=== PATIENT | female | born 2005 | race Caucasian/White ===

== ENCOUNTER 2025-07-11 22:15 | Emergency (ER) | payer OTHER, SELFPAY ==
--- NOTE | ~2025-07-11 | CT_ITS ---
CT of the Abdomen and Pelvis: Indication: Abdominal pain Technique: 2.5 mm axial scans were obtained through the abdomen and pelvis following intravenous administration of 100 cc of Omnipaque 350. Dose reduction technique was used on this scan by utilizing automated exposure control and iterative reconstruction technique. The dose-length product (DLP) was 224.43 mGy-cm. Findings: Scans through the lung bases are unremarkable. The liver, spleen, pancreas, gallbladder, adrenals and kidneys are within normal limits. No evidence of aortic aneurysm. No lymphadenopathy. No bowel obstruction or bowel wall thickening. There is no evidence to suggest acute appendicitis. Images through the pelvis were performed. Urinary bladder unremarkable. No pelvic mass seen. No ascites. No ascites. Impression: No significant abnormalities seen. Reviewed, dictated and finalized at [facility]. Impression: No significant abnormalities seen.
[2025-07-11 22:19] VITALS: BP 154/88; PULSE 115; RESP 16; TEMP 36.7; O2SAT 100
[2025-07-11 22:46] LABS: Hematocrit 36.6 % (37.0-47.0); Hemoglobin 12.7 g/dL (12.0-15.0); Immature Granulocyte Percent A 0.2 % (0-0.5); Lymphocytes Absolute Auto 3.94 K/mm3 (0.9-3.2); Mean Corpuscular HGB Conc 34.7 g/dl (32-36); Mean Corpuscular Hemoglobin 32.1 pg (26-34); Mean Corpuscular Volume 92.4 fl (80-100); Nucleated Red Blood Cells Absolute Auto 0.000 K/mm3 (0.0-0.012); Nucleated Red Blood Cells Perc 0.0 % (0.0-0.2); Platelet Count Result 241 k/mm3 (150-375); Red Blood Count 3.96 M/mm3 (4.2-5.4); White Blood Count 9.0 K/mm3 (4.5-10.0)
[2025-07-11 22:58] LABS: Alanine Aminotransferase 14 U/L (6-35); Albumin Level 4.5 g/dL (3.5-5.1); Alkaline Phosphatase 41 U/L (38-126); Anion Gap 9 mmol/L (4-12); Aspartate Amino Transferase 29 U/L (14-36); Bilirubin,Total 0.2 mg/dL (0.2-1.3); Blood Urea Nitrogen 16 mg/dL (7-17); Calcium 10.4 mg/dL (8.4-10.2); Carbon Dioxide 23 mmol/L (22-30); Chloride 105 mmol/L (98-107); Estimated CRCL calculation 74 ml/min; Estimated Glomerular Filt Rate > 60; Glucose 123 mg/dL (65-110); Lipase 54 U/L (23-300); Potassium 3.3 mmol/L (3.4-5.0); Sodium 137 mmol/L (137-145); Total Protein 7.7 g/dL (6.3-8.2)
[2025-07-11 23:24] LABS: Add Urine Microscopic? NO; Appearance Urine Clear (Clear); Glucose Urine UA Negative (Negative); Leukocyte Esterase Ur Negative LEU/UL (Negative); Nitrate Urine Negative (Negative); Specific Grav Ur 1.005 (1.001-1.035)
[2025-07-12 01:16] VITALS: BP 117/74; O2SAT 99
[2025-07-12 01:17] VITALS: O2SAT 99
--- OUTSIDE RECORDS SUMMARY | 2025-07-12 01:28 | XMS_ITS | Encounter Summary ---
Author Organization [facility] Address [address] [place] [address] Care Team Providers Care Lead Military Analyst Name Role Phone Unavailable Primary Care Provider Unavailabl e Source Comments In the event that this is information that is protected by [facility] Confidentiality of Substance User Disorder Patient Records, 42 CFR Part 2 prohibits the unauthorized disclosure of these records.[facility] Encounter Details Date Type Department Care Team (Latest Contact Info) Description 05/31/2025 Lab Requisition [place] Pathology [address] [place] [address] Rhoda Lama ANP, NA [address] [facility] [address] [place] [id number] Encounter for gynecological examination (general) (routine) without abnormal findings; Encounter for screening for infections with a predominantly sexual mode of transmission; Encounter for screening for other infectious and parasitic diseases Social History Tobacco Use Types Packs/Day Years Used Date Smoking Tobacco: Never Assessed Comments Unknown Sex and Gender Information Value Date Recorded Sex Assigned at Not on file Legal Sex Female 5:40 PM CDT Gender Identity Not on file Sexual Orientation Not on file documented as of this encounter Plan of Treatment Not on file documented as of this encounter Procedures Procedure Name Priority Date/Time Associated Diagnosis Comments IMAGE GUIDED PAP, REFLEX HPV ASCUS ONLY Routine 05/31/2025 1:44 PM CDT Encounter for gynecological examination (general) (routine) without abnormal findings Encounter for screening for infections with a predominantly sexual mode of transmission Encounter for screening for other infectious and parasitic diseases documented in this encounter Results * Image Guided Pap, Reflex HPV if ASCUS Only (05/31/2025 1:44 PM CDT) Case Report Cytology Gynecological Report Case: [id number] Authorizing Provider: Rhoda Lama ANP, FNP Collected: 05/31/2025 1344 Ordering Location: [place] [facility] Received: 06/01/2025 0153 First Screen: Basim Jin CT Specimen: Screening Pap - Imaged, Cervix 06/02/2025 5:54 AM CDT [facility] Statement of Adequacy Satisfactory for evaluation Transformation zone component present 06/02/2025 5:54 AM CDT [facility] Final Diagnosis Negative for Intraepithelial Lesion or Malignancy (NIL). 06/02/2025 5:54 AM CDT [facility] at 0554 CDT Comment This specimen was reviewed by a Male Infertility Specialist and/or Pathologist (as indicated in this report) after evaluation using the Thinprep Imaging System. 06/02/2025 5:54 AM CDT [facility] Clinical Information Menstrual Status: LMP (if applicable): Clinical History/Previous Pap: Type of Neoplasia (if applicable): Significant Clinical Findings: Other History: Hormones (if applicable): 06/02/2025 5:54 AM CDT [facility] Pap Educational Note The Pap Test is a screening test with an inherent false negative rate. Liquid-based sampling may decrease, but will not eliminate, false negative results. A negative result does not preclude the presence and/or development of disease, since the presence of abnormal cells in the sample depends on the location of the lesion and sampling technique. Continued regular screening is the best method of cancer prevention. If reported cytologic finding do not correlate with physical and/or historical findings, further investigation is recommended, as clinically warranted. 06/02/2025 5:54 AM CDT [facility] Cervical Cancer Screening SPECIMEN FROM CERVIX OR VAGINA / Unknown 05/31/2025 1:44 PM CDT 06/01/2025 1:53 AM CDT us Rhoda Lama ANP, CUSTOMER RESOLUTION SPECIALIST [facility] ORDERABLE S Final Result [facility] [address] [place] [address] documented in this encounter Visit Diagnoses Diagnosis Encounter for gynecological examination (general) (routine) without abnormal findings Encounter for screening for infections with a predominantly sexual mode of transmission Encounter for screening for other infectious and parasitic diseases documented in this encounter
--- OUTSIDE RECORDS SUMMARY | 2025-07-12 01:28 | XMS_ITS | Clinical Summary ---
Author Organization [facility] Address [address] [place] [address] Phone Care Team Providers Care Domestic Technician Name Role Phone Provider, None Primary Care Provider Unavailabl e Allergies No known active allergies Medications fluticasone (FLONASE) 50 MCG/ACT SuspensionIndic ations:Acute serous otitis media of left ear, recurrence not specified 1-2 Sprays by Nasal route daily. Use in each nostril as directed. 1 Bottle 11/29/2018 Active Active Problems Problem Noted Date Diagnosed Date Bilateral acute serous otitis media 12/09/2018 Immunizations Immunization Administration Dates Next Due Meningococcal MCV4O 06/05/2017 Family History Medical History Relation Name Comments No Known Problems Father No Known Problems Mother Relation Name Status Comments Father Mother Social History Tobacco Use Types Packs/Day Years Used Date Smoking Tobacco: Never Smokeless Tobacco: Never Tobacco Cessation:Counseling Given: No Comments No Sex and Gender Information Value Date Recorded Sex Assigned at Not on file Legal Sex Female 10:37 PM CDT Gender Identity Not on file Sexual Orientation Not on file Last Filed Vital Signs Vital Sign Reading Time Taken Comments Blood Pressure 112/62 11/29/2018 4:51 PM [facility] Pulse 64 12/09/2018 2:07 PM [facility] Temperature 36.5 C (97.7 F) 11/29/2018 4:51 PM [facility] Respiratory Rate 14 06/05/2017 12:45 PM CDT Oxygen Saturation 98% 11/29/2018 4:51 PM [facility]NA[facility] Inhaled Oxygen Concentration - - Weight 54.9 kg (121 lb) 12/09/2018 2:07 PM [facility] Height 172.7 cm (5' 8) 12/09/2018 2:07 PM [facility] Body Mass Index 18.4 12/09/2018 2:07 PM [facility] Plan of Treatment Health Maintenance Due Date Last Done Comments Hepatitis C Virus (HCV) Screening 2003 TdaP Immunization 2003 Human Papillomavirus (HPV) Immunization (1 - 3-dose series) 2018 Meningococcal B Immunization (1 of 2 - Standard) 2019 Hepatitis B Immunization (1 of 3 - 19+ 3-dose series) 2022 Pap Smear 2024 SARS-COV-2 Immunization (3 - 2023- season) 2024 07/13/2021, 06/20/2021 Influenza Immunization (#1) 2025 2003 Respiratory Syncytial Virus (RSV) Immunization (Adult) (1 - 1-dose 75+ series) 2078 Meningococcal Immunization (ACWY) Completed 09/15/2020, 06/05/2017 Pneumococcal Immunization Combined Aged Out No longer eligible b ased on patient's age to complete this topic Rotavirus Immunization Aged Out No lo nger eligible based on patient's age to complete this topic Insurance [facility] Care Teams Domestic Technician Relationship Specialty Start Date End Date Provider, None [place] PCP - General 08/04/23
--- OUTSIDE RECORDS SUMMARY | 2025-07-12 01:28 | XMS_ITS | Clinical Summary ---
Author Organization [facility] Address [address] [place] [address] Care Team Providers Care Manufacturing Support Engineer Name Role Phone Unavailable Primary Care Provider Unavailabl e Source Comments In the event that this is information that is protected by federal Confidentiality of Substance UseDisorder Patient Records, 42 CFR Part 2 prohibits the unauthorized disclosure of these records.[facility] Encounters Date Type Department Care Team Description 05/31/2025 Lab Requisition [place] Pathology [address] [place] [address] Rhoda Lama ANP, FNP Encounter for gynecological examination (general) (routine) without abnormal findings; Encounter for screening for infections with a predominantly sexual mode of transmission; Encounter for screening for other infectious and parasitic diseases from Last 3 Months Social History Tobacco Use Types Packs/Day Years Used Date Smoking Tobacco: Never Assessed Comments Unknown Sex and Gender Information Value Date Recorded Sex Assigned at Not on file Legal Sex Female 5:40 PM CDT Gender Identity Not on file Sexual Orientation Not on file Plan of Treatment Not on file Procedures Procedure Name Priority Date/Time Associated Diagnosis Comments IMAGE GUIDED PAP, REFLEX HPV ASCUS ONLY Routine 05/31/2025 1:44 PM CDT Encounter for gynecological examination (general) (routine) without abnormal findings Encounter for screening for infections with a predominantly sexual mode of transmission Encounter for screening for other infectious and parasitic diseases from Last 3 Months Results * Image Guided Pap, Reflex HPV if ASCUS Only (05/31/2025 1:44 PM CDT) Case Report Cytology Gynecological Report Case: [id number] Authorizing Provider: Rhoda Lama ANP, FNP Collected: 05/31/2025 1344 Ordering Location: [place] Pathology Received: 06/01/2025 0153 First Screen: Basim Jin CT Specimen: Screening Pap - Imaged, Cervix 06/02/2025 5:54 AM CDT [facility] Statement of Adequacy Satisfactory for evaluation Transformation zone component present 06/02/2025 5:[address] [facility] Final Diagnosis Negative for Intraepithelial Lesion or Malignancy (NIL). 06/02/2025 5:[address] [facility] at 0554 CDT Comment This specimen was reviewed by a Financial Systems Administrator and/or Pathologist (as indicated in this report) after evaluation using the Thinprep Imaging System. 06/02/2025 5:[address] [facility] Clinical Information Menstrual Status: LMP (if applicable): Clinical History/Previous Pap: Type of Neoplasia (if applicable): Significant Clinical Findings: Other History: Hormones (if applicable): 06/02/2025 5:[address] [facility] Pap Educational Note The Pap Test [...] as clinically warranted. 06/02/2025 5:[address] [facility] Cervical Cancer Screening SPECIMEN FROM CERVIX OR VAGINA / Unknown 05/31/2025 1:44 PM CDT 06/01/2025 1:53 AM CDT Rhoda Lama ANP, NA [facility] ORDERABLE S Final Result [facility] [address] [place], [place] [id number] from Last 3 Months Insurance * Guarantor: Rhoda Lowry Account Type Relation to Patient Date of Phone Billing Address [facility] Self [address] [place] [address] [facility] [employer] P[employer]
--- OUTSIDE RECORDS SUMMARY | 2025-07-12 01:28 | XMS_ITS | Clinical Summary ---
Author Organization [facility] Address [address] [place] [address] Care Team Providers Care Rehabilitation Teacher Name Role Phone Unavailable Primary Care Provider Unavailabl e Social History Tobacco Use Types Packs/Day Years Used Date Smoking Tobacco: Never Assessed Comments Unknown Sex and Gender Information Value Date Recorded Sex Assigned at Not on file Legal Sex Female 6:43 PM SENIOR TECHNICAL SUPPORT ENGINEER Gender Identity Not on file Sexual Orientation Not on file Plan of Treatment Health Maintenance Due Date Last Done Comments Cervical Cancer Screening Pa p Smear (Age 21 to 29) Every 3 Years 2003 Cervical Cancer Screening 2003 Annual Physical 2006 HPV Vaccines (1 - 3-dose series) 2018 Meningococcal B Vaccine (1 o f 2 - Standard) 2019 Hepatitis C 2021 DTaP, Tdap and Td Vaccines ( 1 - Tdap) 2022 Hepatitis B Vaccines (1 of 3 - 19+ 3-dose series) 2022 COVID-19 Vaccine (1 - 2023-2 5 season) 2024 Meningococcal Vaccine Aged Out No susana evin eligible based on patient's age to complete this topic Pneumococcal Vaccine: Pediat rics (0 to 5 Years) and At-Risk Patients (6 to 49 Years) Aged Out No longer eligible b ased on patient's age to complete this topic RSV Immunizations Under 20 Months Aged Out No longer eligible based on patient's age to complete this topic
[2025-07-12 01:55] LABS: BEDSIDEPREGUCG Negative (Negative)
--- NOTE | 2025-07-12 02:02 | ED.ABDPAIN ---
HPI - Abdominal Pain General Chief Complaint: Abdominal Pain <KYRIE Nj Last Filed: 07/12/25 02:15> Stated Complaint: abd pain <KYRIE Nj Last Filed: 07/12/25 02:15> Time Seen by Provider: 07/12/25 01:00 <KYRIE Nj Last Filed: 07/12/25 02:15> Source: patient <KYRIE Nj Last Filed: 07/12/25 02:15> Mode of arrival: ambulatory <KYRIE Nj Last Filed: 07/12/25 02:15> Limitations: no limitations <KYRIE Nj Last Filed: 07/12/25 02:15> History of Present Illness HPI narrative: Patient is a 20-year-old female who presents the ED with report of lower abdominal pain. Patient reports having diffuse pain throughout her lower abdomen intermittently over the past 2 months. Occasionally worse on left and right side. Reports pain typically worse around an hour after eating. Denies alleviating factors. Has been somewhat constipated, states she typically goes 2-3 days without having a bowel movement. Has been taking MiraLax over the past couple of days, with some improvement. Last bowel was yesterday and was normal. Denies rectal bleeding or melena. Reports occasional nausea, at night. Denies vomiting. Denies dysuria, hematuria, vaginal bleeding. <KYRIE Nj Last Filed: 07/12/25 02:15> Related Data Allergies/Adverse Reactions: Allergies Allergy/AdvReac Type Severity Reaction Status Date / Time No Known Allergies Allergy Verified 07/11/25 22:16 <KYRIE Nj Last Filed: 07/12/25 02:15> Review of Systems Review of Systems: All systems reviewed & are unremarkable except as noted in HPI. <KYRIE Nj Last Filed: 07/12/25 02:15> All systems reviewed & are unremarkable except as noted in HPI and below <KYRIE Nj Last Filed: 07/12/25 02:15> Exam Narrative: GENERAL: Well appearing, thin, non-toxic, in no acute distress. HEAD: Normocephalic, atraumatic. RESPIRATORY: Airway patent, respirations nonlabored. Clear to auscultation bilaterally, no rales, rhonchi, wheezing. CARDIOVASCULAR: Regular rate and rhythm without murmurs, rubs, or gallops. ABDOMINAL: Soft, mild diffuse tenderness throughout lower abdomen, nondistended. Normoactive BS. MUSCULOSKELETAL: Moves all extremities. No gross deformities. SKIN: Warm, dry, normal color. NEURO: A&O X3. Speech clear. PSYCHIATRIC: Appropriate mood and affect. Normal interaction. <Maribel Lua PA-C - Last Filed: 07/12/25 02:15> Course CONFERENCE SPECIALIST/PA Physician Supervision This visit was performed by both a physician and an APC. I performed all aspects of the MDM as documented. CT scan was negative but did show some evidence of constipation. Patient family updated on results of workup. <Ventura Mcdaniel MD - Last Filed: 07/12/25 06:01> Vital Signs Vital signs: Vital Signs Temperature 98.1 F 07/11/25 22:19 Pulse Rate 115 H 07/11/25 22:19 Respiratory Rate 16 07/11/25 22:19 Blood Pressure 154/88 H 07/11/25 22:19 Pulse Oximetry 100 07/11/25 22:19 Oxygen Delivery Room Air 07/11/25 22:19 Temperature 98.1 F 07/11/25 22:19 Pulse Rate 65 07/12/25 05:13 Respiratory Rate 16 07/12/25 05:13 Blood Pressure 117/86 07/12/25 05:13 Pulse Oximetry 99 07/12/25 05:13 Oxygen Delivery Room Air 07/11/25 22:19 <Maribel Lua PA-C - Last Filed: 07/12/25 02:15> Vital Signs Temperature 98.1 F 07/11/25 22:19 Pulse Rate 115 H 07/11/25 22:19 Respiratory Rate 16 07/11/25 22:19 Blood Pressure 154/88 H 07/11/25 22:19 Pulse Oximetry 100 07/11/25 22:19 Oxygen Delivery Room Air 07/11/25 22:19 Temperature 98.1 F 07/11/25 22:19 Pulse Rate 65 07/12/25 05:13 Respiratory Rate 16 07/12/25 05:13 Blood Pressure 117/86 07/12/25 05:13 Pulse Oximetry 99 07/12/25 05:13 Oxygen Delivery Room Air 07/11/25 22:19 <Ventura Mcdaniel MD - Last Filed: 07/12/25 06:01> MDM - Abdominal Pain MDM Narrative Medical decision making narrative: Patient reports lower abdominal pain, intermittently over past 2 months, associated with constipation. Patient initially was tachycardic upon arrival to the ED, this was resolved by the time of my evaluation. In no acute distress. Denying current pain. Cbc without leukocytosis or anemia. CMP with potassium 3.3. Will replace. Otherwise unremarkable. Otherwise stable electrolytes. Stable kidney function. Urinalysis is clear. Urine is negative. CT scan of abdomen/pelvis was obtained. Care signed out to Dr. Mcdaniel at shift change pending STAT RAD CT results. <Maribel Lua PA-C - Last Filed: 07/12/25 02:15> Patient reports lower abdominal pain, intermittently over past 2 months, associated with constipation. Patient initially was tachycardic upon arrival to the ED, this was resolved by the time of my evaluation. In no acute distress. Denying current pain. Cbc without leukocytosis or anemia. CMP with potassium 3.3. Will replace. Otherwise unremarkable. Otherwise stable electrolytes. Stable kidney function. Urinalysis is clear. Urine is negative. CT scan of abdomen/pelvis was obtained. Care signed out to Dr. Mcdaniel at shift change pending STAT RAD CT results. This visit was performed by both a physician and an APC. I performed all aspects of the MDM as documented. <Ventura Mcdaniel MD - Last Filed: 07/12/25 06:01> Differential Diagnosis Differential diagnosis: Likely abdominal pain, acute appendicitis, calculus of kidney, constipation, diverticulitis, endometriosis, gastroenteritis, pancreatitis, small bowel obstruction and other <Ventura Mcdaniel MD - Last Filed: 07/12/25 06:01> Medical Records Attestation: I reviewed the patient's medical records. <Maribel Lua PA-C - Last Filed: 07/12/25 02:15> Lab Data Attestation: I reviewed the patient's lab results. <Maribel Lua PA-C - Last Filed: 07/12/25 02:15> Result diagrams: 07/11/25 22:35 07/11/25 22:35 <Maribel Lua PA-C - Last Filed: 07/12/25 02:15> Labs: Lab Results 07/11/25 07/11/25 07/12/25 Range/Units 22:35 23:07 00:43 WBC 9.0 (4.5-10.0) K/mm3 RBC 3.96 L (4.2-5.4) M/mm3 Hgb 12.7 (12.0-15.0) g/dL Hct 36.6 L (37.0-47.0) % MCV 92.4 (80-100) fl MCH 32.1 (26-34) pg MCHC 34.7 (32-36) g/dl RDW 11.3 L (11.5-14.5) % Plt Count 241 (150-375) k/mm3 MPV 9.8 (7.4-10.4) fl Immature Gran % (Auto) 0.2 (0-0.5) % Neut % (Auto) 43.5 L (45.5-73.1) % Lymph % (Auto) 44.0 (18.3-44.2) % [place] % (Auto) 9.6 H (2.6-8.5) % Eos % (Auto) 1.8 (0-4.4) % Baso % (Auto) 0.9 (0.2-1.2) % Lymph # (Auto) 3.94 H (0.9-3.2) K/mm3 [place] # (Auto) 0.9 H (0.1-0.6) K/mm3 Eos # (Auto) 0.2 (0-0.3) K/mm3 Baso # (Auto) 0.1 (0.0-0.1) K/mm3 Abs Immat Gran (auto) 0.02 (0.00-0.031) K/mm3 Absolute Neuts (auto) 3.9 (1.3-6.7) K/mm3 Absolute Nucleated RBC 0.000 (0.0-0.012) K/mm3 Nucleated RBC % 0.0 (0.0-0.2) % Sodium 137 (137-145) mmol/L Potassium 3.3 L (3.4-5.0) mmol/L Chloride 105 (98-107) mmol/L Carbon Dioxide 23 (22-30) mmol/L Anion Gap 9 (4-12) mmol/L BUN 16 (7-17) mg/dL Creatinine 0.98 (0.7-1.0) mg/dL Estim Creat Clear Calc 74 ml/min Estimated GFR > 60 (59 - ) Glucose 123 H (65-110) mg/dL Calcium 10.4 H (8.4-10.2) mg/dL Total Bilirubin 0.2 (0.2-1.3) mg/dL AST 29 (14-36) U/L ALT 14 (6-35) U/L Alkaline Phosphatase 41 (38-126) U/L Total Protein 7.7 (6.3-8.2) g/dL Albumin 4.5 (3.5-5.1) g/dL Lipase 54 (23-300) U/L Urine Color Yellow (Yellow) Urine Appearance Clear (Clear) Urine pH 7.5 (5.0-9.0) Ur Specific [place] 1.005 (1.001-1.035) Urine Protein Negative (Negative) mg/dL Urine Glucose (UA) Negative (Negative) mg/dL Urine Ketones Negative (Negative) mg/dL Ur Blood (Man) Negative (Negative) Urine Nitrate Negative (Negative) Urine Bilirubin Negative (Negative) Urine Urobilinogen 0.2 (<2.0) mg/dL Leukocyte Esterase Rfl Negative (Negative) BERNARDO/UL POC Urine HCG, Qual Negative (Negative) <Maribel Lua PA-C - Last Filed: 07/12/25 02:15> Lab Results 07/11/25 07/11/25 07/12/25 Range/Units 22:35 23:07 00:43 WBC 9.0 (4.5-10.0) K/mm3 RBC 3.96 L (4.2-5.4) M/mm3 Hgb 12.7 (12.0-15.0) g/dL Hct 36.6 L (37.0-47.0) % MCV 92.4 (80-100) fl MCH 32.1 (26-34) pg MCHC 34.7 (32-36) g/dl RDW 11.3 L (11.5-14.5) % Plt Count 241 (150-375) k/mm3 MPV 9.8 (7.4-10.4) fl Immature Gran % (Auto) 0.2 (0-0.5) % Neut % (Auto) 43.5 L (45.5-73.1) % Lymph % (Auto) 44.0 (18.3-44.2) % [place] % (Auto) 9.6 H (2.6-8.5) % Eos % (Auto) 1.8 (0-4.4) % Baso % (Auto) 0.9 (0.2-1.2) % Lymph # (Auto) 3.94 H (0.9-3.2) K/mm3 [place] # (Auto) 0.9 H (0.1-0.6) K/mm3 Eos # (Auto) 0.2 (0-0.3) K/mm3 Baso # (Auto) 0.1 (0.0-0.1) K/mm3 Abs Immat Gran (auto) 0.02 (0.00-0.031) K/mm3 Absolute Neuts (auto) 3.9 (1.3-6.7) K/mm3 Absolute Nucleated RBC 0.000 (0.0-0.012) K/mm3 Nucleated RBC % 0.0 (0.0-0.2) % Sodium 137 (137-145) mmol/L Potassium 3.3 L (3.4-5.0) mmol/L Chloride 105 (98-107) mmol/L Carbon Dioxide 23 (22-30) mmol/L Anion Gap 9 (4-12) mmol/L BUN 16 (7-17) mg/dL Creatinine 0.98 (0.7-1.0) mg/dL Estim Creat Clear Calc 74 ml/min Estimated GFR > 60 (59 - ) Glucose 123 H (65-110) mg/dL Calcium 10.4 H (8.4-10.2) mg/dL Total Bilirubin 0.2 (0.2-1.3) mg/dL AST 29 (14-36) U/L ALT 14 (6-35) U/L Alkaline Phosphatase 41 (38-126) U/L Total Protein 7.7 (6.3-8.2) g/dL Albumin 4.5 (3.5-5.1) g/dL Lipase 54 (23-300) U/L Urine Color Yellow (Yellow) Urine Appearance Clear (Clear) Urine pH 7.5 (5.0-9.0) Ur Specific [place] 1.005 (1.001-1.035) Urine Protein Negative (Negative) mg/dL Urine Glucose (UA) Negative (Negative) mg/dL Urine Ketones Negative (Negative) mg/dL Ur Blood (Man) Negative (Negative) Urine Nitrate Negative (Negative) Urine Bilirubin Negative (Negative) Urine Urobilinogen 0.2 (<2.0) mg/dL Leukocyte Esterase Rfl Negative (Negative) BERNARDO/UL POC Urine HCG, Qual Negative (Negative) <Ventura Mcdaniel MD - Last Filed: 07/12/25 06:01> Imaging Data Attestation: I personally reviewed and interpreted this imaging study as follows: <Maribel Lua PA-C - Last Filed: 07/12/25 02:15> Radiologist's impression: Overnight read Impression no acute intra-abdominal or pelvic findings. Moderate colonic stool burden without evidence of obstruction. <Ventura Mcdaniel MD - Last Filed: 07/12/25 06:01> Discharge Plan Discharge Clinical Impression: Intermittent lower abdominal pain Constipation Qualifiers: Constipation type: unspecified constipation type Qualified Code(s): K59.00 - Constipation, unspecified <Maribel Lua PA-C - Last Filed: 07/12/25 02:15> Patient Disposition: Home <Maribel Lua PA-C - Last Filed: 07/12/25 02:15> Condition: Stable <Maribel Lua PA-C - Last Filed: 07/12/25 02:15> Instructions: Antibiotic Form, Constipation (ED), High Fiber Diet (ED), Abdominal Pain (ED) <Maribel Lua PA-C - Last Filed: 07/12/25 02:15> Additional Instructions: Recommend MiraLax and Dulcolax as needed up to twice a day for the next 1 week to assist with constipation. Recommend staying very well hydrated, drinking plenty of fluids. Recommend high-fiber diet, plenty of fruits and vegetables. Recommend Tylenol as needed for pain. Follow-up with primary care doctor and/or GI for further evaluation. Call offices to make appointments. Return to the ED if you experience worsening or severe pain, unable to keep down food or drink, severe constipation, rectal bleeding, dark black stools, or any other symptoms of concern. <Maribel Lua PA-C - Last Filed: 07/12/25 02:15> Patient Language: Sinhala <Maribel Lua PA-C - Last Filed: 07/12/25 02:15> Follow-up/Referrals: Virginia Sanabria DO [Physician, Family Practice] Referral Note: PRIMARY CARE PHYSICIAN,WO[facility] BUFFER [Primary Care Provider, Internal Medicine] Nader Lau MD [Physician, Gastroenterology] Referral Note: GI <Maribel Lua PA-C - Last Filed: 07/12/25 02:15>
[2025-07-12] MEDS: POTASSIUM CHLORIDE 20 MEQ ER TABLET PO (05:03)
[2025-07-12 05:13] VITALS: BP 117/86; PULSE 65; RESP 16; O2SAT 99
== END 2025-07-12 05:00 | disposition home or self-care (01) ==
PROVIDERS: Emergency Medicine; Emergency Provider Physician Assistant
DX: K59.00 Constipation, unspecified (principal)
CPT/HCPCS: 36415; 74177; 80053; 81003; 81025; 83690; 85025; 99284; A9270; Q9967

== ENCOUNTER 2025-07-26 09:49 | Outpatient (CLI) | payer OTHER, SELFPAY ==
--- OUTSIDE RECORDS SUMMARY | 2025-07-26 10:15 | XMS_ITS | Clinical Summary ---
Author Organization [facility] Address [address] [place] [address] Care Team Providers Care Death Surveys Coder Name Role Phone Unavailable Primary Care Provider Unavailabl e Source Comments In the event that this is information that is protected by federal Confidentiality of Substance UseDisorder Patient Records, 42 CFR Part 2 prohibits the unauthorized disclosure of these records.[facility] Encounters Date Type Department Care Team Description 05/31/2025 Lab Requisition [place] Pathology [address] [place] [address] Rhoda Lama ANP, FNP Encounter [...] CDT) Case Report Cytology Gynecological Report Case: [id number] Authorizing Provider: Rhoda Lama ANP, FNP Collected: 05/31/2025 1344 Ordering Location: [place] Pathology Received: 06/01/2025 0153 First Screen: Basim Jin CT Specimen: Screening Pap - Imaged, Cervix 06/02/2025 5:54 AM CDT [facility] Statement of Adequacy Satisfactory for evaluation Transformation zone component present 06/02/2025 5:54 AM CDT [facility] Final Diagnosis Negative for Intraepithelial Lesion or Malignancy (NIL). 06/02/2025 5:54 AM CDT [facility] at 0554 CDT Comment This specimen was reviewed by a Home Supervisor and/or Pathologist (as indicated in this report) after evaluation using the Thinprep Imaging System. 06/02/2025 5:54 AM CDT [facility] Clinical Information Menstrual Status: LMP (if applicable): Clinical History/Previous Pap: Type of Neoplasia (if applicable): Significant Clinical Findings: Other History: Hormones (if applicable): 06/02/2025 5:54 AM CDT [facility] Pap Educational Note The Pap Test [...] as clinically warranted. 06/02/2025 5:54 AM CDT [facility] Cervical Cancer Screening SPECIMEN FROM CERVIX OR VAGINA / Unknown 05/31/2025 1:44 PM CDT 06/01/2025 1:53 AM CDT Rhoda Lama ANP, NA ARGUELLO CYTOLOGY ORDERABLE S Final Result [facility] [address] [place], [place] [id number] from Last 3 Months Insurance * Guarantor: Rhoda Lowry Account Type Relation to Patient Date of Phone Billing Address Health Lab Self [id number] [place] [address] [facility] [employer] PPO
--- OUTSIDE RECORDS SUMMARY | 2025-07-26 10:16 | XMS_ITS | Clinical Summary ---
Author Organization [facility] Address [address] [place] [address] Phone Care Team Providers Care Through Freight Engineer Name Role Phone Provider, None Primary Care [...] Comments Blood Pressure 112/62 11/29/2018 4:51 PM DIVISION ORDER TECHNICIAN Pulse 64 12/09/2018 2:07 PM DIVISION ORDER TECHNICIAN Temperature 36.5 C (97.7 F) 11/29/2018 4:51 PM DIVISION ORDER TECHNICIAN Respiratory Rate 14 06/05/2017 12:45 PM CDT Oxygen Saturation 98% 11/29/2018 4:51 PM DIVISION ORDER TECHNICIAN Inhaled Oxygen Concentration - - Weight 54.9 kg (121 lb) 12/09/2018 2:07 PM DIVISION ORDER TECHNICIAN Height 172.7 cm (5' 8) 12/09/2018 2:07 PM DIVISION ORDER TECHNICIAN Body Mass Index 18.4 12/09/2018 2:07 PM DIVISION ORDER TECHNICIAN Plan of Treatment Health Maintenance Due Date Last Done Comments Hepatitis C Virus (HCV) Screening 2005 TdaP Immunization 2003 Human Papillomavirus (HPV) Immunization (1 - 3-dose series) 2018 Meningococcal B Immunization (1 of 2 - Standard) 2019 Hepatitis B Immunization (1 of 3 - 19+ 3-dose series) 2022 Pap Smear 2024 Influenza Immunization (#1) 2025 2003 SARS-COV-2 Immunization (3 - season) 2025 07/13/2021, 06/20/2021 Respiratory Syncytial Virus (RSV) Immunization (Adult) (1 - 1-dose 75+ series) 2078 Meningococcal Immunization (ACWY) Completed 09/15/2020, 06/05/2017 Pneumococcal Immunization Combined Aged Out No longer eligible b ased on patient's age to complete this topic Rotavirus Immunization Aged Out No lo nger eligible based on patient's age to complete this topic Insurance [facility] Care Teams Through Freight Engineer Relationship Specialty Start Date End Date Provider, None [place] PCP - General 08/04/23
--- OUTSIDE RECORDS SUMMARY | 2025-07-26 10:16 | XMS_ITS | Encounter Summary ---
Author Organization [facility] Address [address] [place] [address] Care Team Providers Care Preconstruction Manager Name Role Phone Unavailable Primary Care Provider Unavailabl e Source Comments In the event that this is information that is protected by [facility] Confidentiality of Substance User Disorder Patient Records, 42 CFR Part 2 prohibits the unauthorized disclosure of these records.[facility] Encounter Details Date Type Department Care Team (Latest Contact Info) Description 05/31/2025 Lab Requisition [place] Pathology [address] [place] [address] Rhoda Lama ANP, NA [address] [facility] [address] [place] [address] Encounter for gynecological examination (general) (routine) [...] CDT) Case Report Cytology Gynecological Report Case: [id number] Authorizing Provider: Rhoda Lama ANP, FNP Collected: 05/31/2025 1344 Ordering Location: [place] Pathology Received: 06/01/2025 0153 First Screen: Basim Jin CT Specimen: Screening Pap - Imaged, Cervix 06/02/2025 5:54 AM CDT [facility] Statement of Adequacy Satisfactory for evaluation Transformation zone component present 06/02/2025 5:54 AM CDT [facility] Final Diagnosis Negative for Intraepithelial Lesion or Malignancy (NIL). 06/02/2025 5:54 AM CDT [facility] at 0554 CDT Comment This specimen was reviewed by a Chopping Machine Operator and/or Pathologist (as indicated in this report) after evaluation using the Thinprep Imaging System. 06/02/2025 5:54 AM CDT [facility] Clinical Information Menstrual Status: LMP (if applicable): Clinical History/Previous Pap: Type of Neoplasia (if applicable): Significant Clinical Findings: Other History: Hormones (if applicable): 06/02/2025 5:54 AM CDT [facility] Pap Educational Note The Pap [...] as clinically warranted. 06/02/2025 5:54 AM CDT [facility] Cervical Cancer Screening SPECIMEN FROM CERVIX OR VAGINA / Unknown 05/31/2025 1:44 PM CDT 06/01/2025 1:53 AM CDT us Rhoda Lama ANP, LINING PRESSER SAUNDRA CYTOLOGY ORDERABLE S Final Result [facility] [address] [place] [address] documented in this encounter Visit Diagnoses Diagnosis Encounter for gynecological examination (general) (routine) without abnormal findings Encounter for screening for infections with a predominantly sexual mode of transmission Encounter for screening for other infectious and parasitic diseases documented in this encounter
--- OUTSIDE RECORDS SUMMARY | 2025-07-26 10:16 | XMS_ITS | Clinical Summary ---
Author Organization [facility] Address [address] [place] [address] Care Team Providers Care Senior Automation Engineer Name Role Phone Unavailable Primary Care Provider Unavailabl e Social History Tobacco Use Types Packs/Day Years Used Date Smoking Tobacco: Never Assessed Comments Unknown Sex and Gender Information Value Date Recorded Sex Assigned at Not on file Legal Sex Female 6:43 PM LCSW Gender Identity Not on file Sexual Orientation [...] COVID-19 Vaccine (1 - 2023-2 5 season) 2025 Meningococcal Vaccine Aged Out No susana evin [...]
== END 2025-07-26 09:50 | disposition home or self-care (01) ==
LOC: ANHLAB 09:50
PROVIDERS: Visit Provider Internal Medicine Gastroenterology
DX: K58.9 Irritable bowel syndrome, unspecified (principal)
CPT/HCPCS: 86231

== ENCOUNTER 2025-07-27 09:14 | Outpatient (CLI) | payer OTHER, SELFPAY ==
--- OUTSIDE RECORDS SUMMARY | 2025-07-27 09:49 | XMS_ITS | Clinical Summary ---
Author Organization [facility] Address [address] [place] [address] Care Team Providers Care Oracle Engineer Name Role Phone Unavailable Primary Care Provider Unavailabl e Social History Tobacco Use Types Packs/Day Years Used Date Smoking Tobacco: Never Assessed Comments Unknown Sex and Gender Information Value Date Recorded Sex Assigned at Not on file Legal Sex Female 6:43 PM MOLD STAMPER Gender Identity Not on file Sexual Orientation [...]
--- OUTSIDE RECORDS SUMMARY | 2025-07-27 09:49 | XMS_ITS | Clinical Summary ---
Author Organization [facility] Address [address] [place] [address] Care Team Providers Care Shop Service Technician Name Role Phone Unavailable Primary Care Provider Unavailabl e Source Comments In the event that this is information that is protected by federal Confidentiality of Substance UseDisorder Patient Records, 42 CFR Part 2 prohibits the unauthorized disclosure of these records.[facility] Encounters Date Type Department Care Team Description 05/31/2025 Lab Requisition [place] Pathology [address] [place] [address] Rhoda Lama ANP, FNP Encounter [...] CDT) Case Report Cytology Gynecological Report Case: [id number] Authorizing Provider: Rhoda Lama ANP, FNP Collected: 05/31/2025 1344 Ordering Location: [place] Pathology Received: 06/01/2025 0153 First Screen: Basim Jin CT Specimen: Screening Pap - Imaged, Cervix 06/02/2025 5:54 AM CDT [facility] Statement of Adequacy Satisfactory for evaluation Transformation zone component present 06/02/2025 5:54 AM CDT [facility] Final Diagnosis Negative for Intraepithelial Lesion or Malignancy (NIL). 06/02/2025 5:54 AM CDT [facility] at 0554 CDT Comment This specimen was reviewed by a Foreign Legal Consultant and/or Pathologist (as indicated in this report) after evaluation using the Thinprep Imaging System. 06/02/2025 5:54 AM CDT [facility] Clinical Information Menstrual Status: LMP (if applicable): Clinical History/Previous Pap: Type of Neoplasia (if applicable): Significant Clinical Findings: Other History: Hormones (if applicable): 06/02/2025 5:54 AM CDT [facility] Pap Educational Note The Pap Test [...] as clinically warranted. 06/02/2025 5:54 AM CDT [facility] Cervical Cancer Screening SPECIMEN FROM CERVIX OR VAGINA / Unknown 05/31/2025 1:44 PM CDT 06/01/2025 1:53 AM CDT Rhoda Lama ANP, NA ARGUELLO CYTOLOGY ORDERABLE S Final Result [facility] [address] [place], [place] [id number] from Last 3 Months Insurance * Guarantor: Rhoda Lowry Account Type Relation to Patient Date of Phone Billing Address Health [facility] Self [address] [place] [address] [facility] STUDENT [employer] PPO
--- OUTSIDE RECORDS SUMMARY | 2025-07-27 09:49 | XMS_ITS | Clinical Summary ---
Author Organization [facility] Address [address] [place] [address] Phone Care Team Providers Care Oyster Grader Name Role Phone Provider, None Primary Care [...] Comments Blood Pressure 112/62 11/29/2018 4:51 PM REGULATORY COMPLIANCE COORDINATOR Pulse 64 12/09/2018 2:07 PM REGULATORY COMPLIANCE COORDINATOR Temperature 36.5 C (97.7 F) 11/29/2018 4:51 PM REGULATORY COMPLIANCE COORDINATOR Respiratory Rate 14 06/05/2017 12:45 PM CDT Oxygen Saturation 98% 11/29/2018 4:51 PM REGULATORY COMPLIANCE COORDINATOR Inhaled Oxygen Concentration - - Weight 54.9 kg (121 lb) 12/09/2018 2:07 PM REGULATORY COMPLIANCE COORDINATOR Height 172.7 cm (5' 8) 12/09/2018 2:07 PM REGULATORY COMPLIANCE COORDINATOR Body Mass Index 18.4 12/09/2018 2:07 PM REGULATORY COMPLIANCE COORDINATOR Plan of Treatment Health Maintenance Due Date [...] patient's age to complete this topic Insurance [facility] Care Teams Oyster Grader Relationship Specialty Start Date End Date Provider, None [place] PCP - General 08/04/23
--- OUTSIDE RECORDS SUMMARY | 2025-07-27 09:49 | XMS_ITS | Encounter Summary ---
Author Organization [facility] Address [address] [place] [address] Care Team Providers Care Finance Professor Name Role Phone Unavailable Primary Care Provider Unavailabl e Source Comments In the event that this is information that is protected by [facility] Confidentiality of Substance User Disorder Patient Records, 42 CFR Part 2 prohibits the unauthorized disclosure of these records.[facility] Encounter Details Date Type Department Care Team (Latest Contact Info) Description 05/31/2025 Lab Requisition [place] Pathology [address] [place] [address] Rhoda Lama ANP, NA [address] [facility] [address] [place] [address] Encounter for gynecological examination (general) (routine) [...] CDT) Case Report Cytology Gynecological Report [id number]: [id number] Authorizing Provider: Rhoda Lama ANP, FNP Collected: 05/31/2025 1344 Ordering Location: [place] Pathology Received: 06/01/2025 0153 First Screen: Basim Jin CT Specimen: Screening Pap - Imaged, Cervix 06/02/2025 5:54 AM CDT [facility] Statement of Adequacy Satisfactory for evaluation Transformation zone component present 06/02/2025 5:54 AM CDT [facility] Final Diagnosis Negative for Intraepithelial Lesion or Malignancy (NIL). 06/02/2025 5:54 AM CDT [facility] at 0554 CDT Comment This specimen was reviewed by a Cheese Specialist and/or Pathologist (as indicated in this report) after evaluation using the Thinprep Imaging System. 06/02/2025 5:54 AM CDT [facility] Clinical Information Menstrual Status: LMP (if applicable): Clinical History/Previous Pap: Type of Neoplasia (if applicable): Significant Clinical Findings: Other History: Hormones (if applicable): 06/02/2025 5:54 AM CDT [facility] Pap Educational Note The Pap [...] as clinically warranted. 06/02/2025 5:54 AM CDT [facility] Cervical Cancer Screening SPECIMEN FROM CERVIX OR VAGINA / Unknown 05/31/2025 1:44 PM CDT 06/01/2025 1:53 AM CDT us Rhoda Lama ANP, HYDROPONICS GROWER SAUNDRA CYTOLOGY ORDERABLE S Final Result [facility] [address] [place] [address] documented in this encounter Visit Diagnoses Diagnosis Encounter for gynecological examination (general) (routine) without abnormal findings Encounter for screening for infections with a predominantly sexual mode of transmission Encounter for screening for other infectious and parasitic diseases documented in this encounter
[2025-07-29 14:08] LABS: Calprotectin, Fecal 45 ug/g (0-120)
== END 2025-07-27 09:15 | disposition home or self-care (01) ==
PROVIDERS: Visit Provider Internal Medicine Gastroenterology
DX: K58.9 Irritable bowel syndrome, unspecified (principal)
CPT/HCPCS: 83993